=== PATIENT | male | born 1990 | race Caucasian/White ===

== ENCOUNTER 2018-11-28 19:25 | Emergency (ER) | payer OTHER ==
[~2018-11-28] VITALS: Ht 175.3 cm; Wt 79.8 kg
[2018-11-28 19:45] VITALS: BP 130/72
--- NOTE | 2018-11-28 19:47 | NUR ---
TO LOBBY A/W BED, XRAY , AMBULATORY
--- NOTE | 2018-11-28 20:20 | NUR ---
PT PRESENTED ER WITH C/O PAIN TO THE RIGHT ANKLE. PT STATED HE STEPPED OFF A CURB WRONG AND TWISTED IT. PT HAS PAIN TO PALPATION. NO BRUISING OR SWELLING TO SIGHT NOTED. PT HAS FULL ROM. PT IS A/OX4. NO MED. HX AND NKA. ER MD MADE AWARE OF STATUS. SAFETY MEASRURES IN PLACE, BED RAILS UP X 1.
[2018-11-28] MEDS ORDERED: IBUPROFEN 800 MG TAB PO ONE (20:30)
[2018-11-28 21:06] VITALS: BP 130/72
--- NOTE | 2018-11-28 21:06 | NUR ---
Patient discharged with v/s stable. Written and verbal after care instructions given and explained. Patient alert, oriented and verbalized understanding of instructions. Ambulatory with steady gait. All questions addressed prior to discharge. ID band removed. Patient advised to follow up with PMD. Rx of IBUPROFEN WAS given. Patient educated on indication of medication including possible reaction and side effects. Opportunity to ask questions provided and answered.
== END 2018-11-28 21:06 | disposition home or self-care (01) ==
LOC: MED 19:25
DX: S93.401A Sprain of unspecified ligament of right ankle, initial encounter (principal); X50.1XXA Overexertion from prolonged static or awkward postures, initial encounter; Y93.89 Activity, other specified; Y92.89 Other specified places as the place of occurrence of the external cause; Y99.8 Other external cause status
CPT/HCPCS: 73610; 99283; Q0092

== ENCOUNTER 2022-06-06 11:34 | Emergency (ER) | payer MEDICAID ==
[~2022-06-06] VITALS: Ht 175.3 cm; Wt 74.8 kg
[~2022-06-06 11:34] MED LIST: FOLI1TAB90 PO; LIB25 PO; THE PO; THIA-34 PO
[2022-06-06 11:57] VITALS: BP 163/91
[2022-06-06] MEDS ORDERED: LORazepam 2 MG/ML VIAL IVP ONE (12:10)
[2022-06-06] MEDS ORDERED: LORazepam 2 MG/ML VIAL ONE (12:12)
--- NOTE | 2022-06-06 12:23 | NUR ---
pt to ct via bed with nuclear technician
--- NOTE | 2022-06-06 12:24 | NUR ---
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 PT ETOH WITHDRAWL. LAST DRINK 2 DAYS AGO. C/O NAUSEA AND WEAKNESS. IV INSERTED TO LEFT AC #[id number]. MEDICATED PER ORDER
[2022-06-06 12:49] LABS: BASOPHILS # (AUTO) 0.1 K/uL (0.00-0.22); BASOPHILS % (AUTO) 0.8 % (0.0-2.0); EOSINOPHILS % (AUTO) 0.5 % (0.0-4.0); HEMOGLOBIN 13.9 g/dL (12.0-18.0); LYMPHOCYTES # (AUTO) 1.3 K/uL (2.0-11.5); LYMPHOCYTES % (AUTO) 15.1 % (20.5-51.1); MEAN CORPUSCULAR HEMOGLOBIN 34 pg (27-31); MEAN CORPUSCULAR HGB CONC 34 g/dL (33-37); MEAN CORPUSCULAR VOLUME 99.5 fL (80-94); MONOCYTES # (AUTO) 0.4 K/uL (0.8-1.0); MONOCYTES % (AUTO) 4.8 % (1.7-9.3); NEUTROPHILS # (AUTO) 6.8 K/uL (1.8-7.7); NEUTROPHILS % (AUTO) 78.8 % (42.2-75.2); PLATELET COUNT (AUTO) 202 K/uL (140-450); RED BLOOD CELL COUNT(AUTO) 4.12 MIL/uL (4.20-6.10); RED CELL DISTRIBUTION WIDTH 13.1 % (11.6-13.7); WHITE BLOOD COUNT (AUTO) 8.7 K/uL (4.8-10.8)
[2022-06-06 13:07] LABS: ALBUMIN 4.2 g/dL (3.4-5.0); ANION GAP 16.8 (8-16); ASPARTATE AMINOTRANSFERASE 139 U/L (15-37); CARBON DIOXIDE 27.4 mmol/L (21-32); CHLORIDE 98 mmol/L (98-107); CREATININE 0.8 mg/dL (0.6-1.3); GFR ARICAN-AMERICAN 145 mL/min (>90); GLUCOSE 176 mg/dL (74-106); MAGNESIUM 1.6 mg/dL (1.8-2.4); POTASSIUM 4.2 mmol/L (3.5-5.1); SALICYLATE < 2.8 mg/dL (2.8-20.0); SODIUM SERUM 138 mmol/L (136-145); TOTAL BILIRUBIN 0.6 mg/dL (0.0-1.0); UREA NITROGEN, BLOOD 9 mg/dL (7-18)
[2022-06-06 13:08] LABS: ACETAMINOPHEN < 0.5 ug/ml (10-30)
--- NOTE | 2022-06-06 13:21 | NUR ---
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
[2022-06-06 13:50] LABS: BARBITURATE, URINE NEGATIVE ng/ml (NEG <=200); BENZODIAZEPINE, URINE POSITIVE ng/mL (NEG <=200); CANNABINOID, URINE NEGATIVE ng/mL (NEG <=50); COCAINE, URINE NEGATIVE ng/mL (NEG <=300); OPIATE, URINE NEGATIVE ng/mL (NEG <=2000); PHENCYCLIDINE SCREEN,URINE NEGATIVE ng/mL (NEG <=25)
[2022-06-06] MEDS ORDERED: LORA-476 PO (14:33)
[2022-06-06 14:45] VITALS: BP 145/70
== END 2022-06-06 14:55 | disposition home or self-care (01) ==
LOC: MED 11:34
DX: F10.239 Alcohol dependence with withdrawal, unspecified (principal); Z79.899 Other long term (current) drug therapy; Y90.0 Blood alcohol level of less than 20 mg/100 ml
CPT/HCPCS: 36415; 70450; 80053; 80305; 81002; 83735; 84100; 85025; 96374; 99284; G0480; G0482; J2060